=== PATIENT | female | born 1965 ===

== ENCOUNTER 2023-11-13 15:36 | Emergency (ER) | payer MEDICAID ==
[~2023-11-13] VITALS: Ht 154.9 cm; Wt 68.0 kg
[2023-11-13 15:51] VITALS: TEMP 98.3
[2023-11-13 16:15] LABS: BASOPHILS % (AUTO) 1.6 % (0.0-2.0); EOSINOPHILS % (AUTO) 0.4 % (1.0-6.0); HEMOGLOBIN 12.7 g/dL (12.0-16.0); LYMPHOCYTES # (AUTO) 2.5 K/uL (1.0-4.8); LYMPHOCYTES % (AUTO) 25.2 % (22.0-44.0); MEAN CORPUSCULAR HEMOGLOBIN 28.2 pg (26.0-34.0); MEAN CORPUSCULAR HGB CONC 33.5 G/dL (31.0-37.0); MEAN CORPUSCULAR VOLUME 84 fL (80-100); MONOCYTES # (AUTO) 0.8 K/uL (0.1-1.0); MONOCYTES % (AUTO) 7.8 % (2.0-9.0); NEUTROPHILS # (AUTO) 6.4 K/uL (1.8-7.7); PLATELET COUNT (AUTO) 400 K/uL (150-450); RED BLOOD CELL COUNT(AUTO) 4.51 MIL/uL (4.00-5.20); RED CELL DISTRIBUTION WIDTH 13.3 % (11.5-14.5); WHITE BLOOD COUNT (AUTO) 9.8 K/uL (4.5-11.0)
[2023-11-13 16:30] LABS: ANION GAP 11 mmol/L (8-16); CALCIUM, TOTAL 9.4 mg/dL (8.8-10.5); CARBON DIOXIDE 26 mmol/L (22-29); CHLORIDE 102 mmol/L (98-107); CREATININE 0.76 mg/dL (0.60-1.30); GLOMERULAR FILTR. RATE CALC > 60 mL/min (>60); GLUCOSE,RANDOM 93 mg/dL (70-110); POTASSIUM 3.2 mmol/L (3.5-5.1); SODIUM SERUM 139 mmol/L (136-145); UREA NITROGEN, BLOOD 11 mg/dL (7-18)
[2023-11-13 16:31] LABS: LIPASE 48 U/L (16-77)
[2023-11-13 16:32] LABS: TROPONIN I-HIGH SENSITIVITY Less Than 4 ng/L (<51)
[2023-11-13] MEDS ORDERED: ACET-66 PO (19:16)
[2023-11-13] MEDS ORDERED: MAG30ORA11 PO (19:16)
[2023-11-13] MEDS ORDERED: OMEP20 PO (19:16)
[2023-11-13 19:56] VITALS: BP 100/65; PULSE 75; RESP 18
== END 2023-11-13 20:00 | disposition home or self-care (01) ==
LOC: EMS 15:41
DX: R10.13 Epigastric pain (principal); Z88.6 Allergy status to analgesic agent
CPT/HCPCS: 71045; 76705; 80048; 83690; 84484; 85025; 93005; 99285; 36415-L1; 36415-TC